=== PATIENT | female | born 1940 | race Caucasian/White ===

== ENCOUNTER 2016-11-04 16:36 | Emergency (ER) | payer MEDICARE ==
[2016-11-04 16:57] LABS: Hematocrit 29.8 % (37.0-47.0); Hemoglobin 9.8 gm/dL (12.5-16.0); Mean Cell Volume 95.8 fl (78-100); Mean Corpuscular Hemoglobin 31.5 pg (27-31); Mean Corpuscular Hgb Conc 32.9 g/dl (32-36); Mean Platelet Volume 9.3 fl (6.0-9.5); Neutrophil # 8.3 K/mm3 (1.3-6.0); Neutrophil % 82.2 % (42-75.0); Platelet Count 251 K/mm3 (150-450); Red Blood Count 3.11 M/mm3 (4.2-5.4); White Blood Count 10.1 K/mm3 (4.0-10.5)
[2016-11-04 16:59] LABS: Urine Bilirubin Negative (NEGATIVE); Urine Blood 25 /ul (NEGATIVE); Urine Ketone Negative (NEGATIVE); Urine Protein Negative (NEGATIVE); Urine Specific Gravity 1.025 SP.GR. (1.005-1.010); Urine Urobilinogen Normal (NORMAL)
[2016-11-04 17:09] LABS: Albumin * 3.9 gm/dl (3.4-5.0); Anion Gap 13.9 mmol/L (6.8-13.8); BUN/Creatinine Ratio 21.1 (9.0-21.6); Bilirubin, Total 1.3 mg/dL (0.0-1.1); Ca. Corrected For Albumin 8.9 mg/dL (8.4-10.2); Calcium * 9.1 mg/dL (7.9-10.9); Carbon Dioxide 27.2 mmol/L (24-32.6); Potassium 4.1 mmol/L (3.4-4.6); Total Protein 7.8 gm/dL (6.2-8.2)
[2016-11-04 17:10] LABS: Urine Appearance Slightly Cloudy; Urine Bacteria 3+; Urine Color Yellow; Urine Nitrite Positive (NEGATIVE); Urine RBC 0-5 /hpf (0-5)
--- OUTSIDE RECORDS SUMMARY | 2016-11-04 18:58 | XMS REPORT | Continuity of Care Document ---
:1940 Author Organization [facility] ([facility]) Address [address] [place] [address] Phone [phone] Care Team Providers Name Role Phone Ralph Rivas Primary Care Provider [phone] Source Comments This disclosure is being made pursuant to the Care Everywhere program, applicable federal and state laws, and may not contain all informaitonavailable regarding this patient.[facility] ([facility]) Active Allergies and Adverse Reactions Allergen Noted Date Severity Reactions Comments Ciprofloxacin 04/07/2012 Dizziness Codeine 04/07/2012 Mental status changes Metformin 04/07/2012 OTHER Sulfa (Sulfonamide Antibiotics) 04/07/2012 Unknown Current Medications Prescription Sig. Disp. Refills Start Date End Date Status pioglitazone (ACTOS) 45 Take 45 mg by mouth Active mg tablet daily. Aspirin 81 mg CpDR Take by mouth Active daily. simvastatin 80 mg tablet Take 40 mg by mouth Active every evening. LOSARTAN 100 mg tablet Take 100 mg by mouth 12/24/2014 Active daily OMEPRAZOLE 40 mg enteric Take 40 mg by mouth 12/09/2014 Active coated capsule daily RANITIDINE 300 mg tablet Take 300 mg by mouth 12/06/2014 Active daily levothyroxine 75 mcg Take 75 mcg by mouth Active tablet every morning before breakfast Active Problems Problem Noted Date Abnormal nuclear stress test 01/07/2015 Diabetes mellitus 04/10/2012 HTN (hypertension) 04/10/2012 Varicose veins 04/10/2012 UTI (urinary tract infection) 04/10/2012 Social History Tobacco Use Types Packs/Day Years Used Date Never Smoker Smokeless Tobacco: Never Used Alcohol Use Drinks/Week oz/Week Comments No Last Filed Vital Signs Vital Sign Reading Time Taken Blood Pressure 152/74 01/21/2015 12:55 PM CDT Pulse 70 01/21/2015 12:55 PM CDT Temperature 36.5 C (97.7 F) 11/26/2013 1:47 PM CDT Respiratory Rate 18 11/26/2013 1:47 PM CDT Height 1.524 m (5') 01/21/2015 12:55 PM CDT Weight 75.751 kg (167 lb) 01/21/2015 12:55 PM CDT Body Mass Index 32.62 01/21/2015 12:55 PM CDT Oxygen Saturation 98% 11/26/2013 1:47 PM CDT Plan of Care Health Maintenance Due Date Last Done Comments Hepatitis B Vaccine (1 of 3 - Primary Series) 1940 Tdap Vaccine 1951 DIABETIC: Cholesterol 1958 Diabetic: Hdl 1958 DIABETIC: Hemoglobin A1C 1958 Diabetic: Ldl 1958 DIABETIC: Microalbumin 1958 DIABETIC: Triglycerides 1958 Td Vaccine 1958 Mammogram 1980 Colonoscopy 1990 Zoster Vaccine 2000 Osteoporosis Screening (DXA Bone Density) 2005 Pneumococcal Vaccine (1 of 2 - PCV13) 2005 DIABETIC: Foot Exam 05/31/2012 DIABETIC: Retinal Eye Exam 05/31/2012 Influenza Vaccine: Seasonal (#1) 03/22/2016 Results from Last 3 Months Not on file
[2016-11-04] MEDS ORDERED: traMADol HCL 50 MG TABLET PO ONE (18:59)
[2016-11-04] MEDS ORDERED: ONDANSETRON 4 MG TAB.RAPDIS PO ONE (18:59)
--- NOTE | 2016-11-04 18:59 | ERNOTE ---
Abdominal HPI - Narrative Date of Service: 11/04/16 - General Chief Complaint: Abdominal Pain Time Seen by Provider: 11/04/16 18:52 Source: patient, family Exam Limitations: no limitations, clinical condition - Immun/Allergies/Home Medications Immunizatons: IMMUNIZATION HX Immunizations Up to Date Yes History of Influenza Vaccine Yes Hx Pneumococcal Vaccination No Allergies/Adverse Reactions: Allergies topiramate [From Topamax] Allergy (Unknown, Verified 11/04/16 16:43) codeine Adverse Reaction (Intermediate, Verified 11/04/16 16:43) CONFUSION atorvastatin calcium [From Lipitor] Adverse Reaction (Mild, Verified 11/04/16 16 :43) LEG CRAMPS metformin Adverse Reaction (Mild, Verified 11/04/16 16:43) Diarrhea moxifloxacin HCl [From Avelox] Adverse Reaction (Mild, Verified 11/04/16 16:43) GI UPSET sulfamethoxazole [From Bactrim] Adverse Reaction (Mild, Verified 11/04/16 16:43) Nausea Home Medications: HOME MEDICATIONS Aspirin [Aspirin Enteric Coated] 81 mg PO DAILY 06/21/13 [Last Taken 08/06/15 21 :00] Levothyroxine Sodium [Synthroid] 25 mcg PO DAILY 06/21/13 [Last Taken 08/06/15 21:00] Losartan Potassium [Cozaar] 100 mg PO DAILY 06/21/13 [Last Taken 08/06/15 21:00] Pioglitazone HCl [Actos] 45 mg PO DAILY 06/21/13 [Last Taken 08/06/15 21:00] Simvastatin 40 mg PO HS 06/21/13 [Last Taken 08/06/15 21:00] Acetaminophen [Tylenol] 650 mg PO QID PRN #0 tablet 08/11/15 [Last Taken Unknown ] Ranitidine HCl 150 mg PO DAILY 11/03/15 [Last Taken Unknown] Nitrofurantoin/Nitrofuran Mac [Macrobid] 1 cap PO Q12H #14 cap 11/04/16 [Last Taken Unknown] Phenazopyridine HCl [Pyridium] 1 tab PO Q8H PRN #12 tablet 11/04/16 [Last Taken Unknown] traMADol HCL [Ultram] 1 tab PO Q6H PRN #28 tab 11/04/16 [Last Taken Unknown] - History of Present Illness Narrative: Presents with c/o suprapubic pain, onset today. Pain described as sharp and crampy. Associated with nausea and a singe episode of vomiting today. Denies any dysuria or urinary frequency at this time. Denies any low back pain or constipation. Timing: constant Quality: moderate, aching, cramping, sharpness Associated Symptoms: Present: nausea, vomiting. Absent: back pain, chest pain, diaphoresis, diarrhea-gross blood, diarrhea-mucous, fatigue, fever/chills, heartburn, loss of appetite, shortness of breath, swelling/mass in abdomen, syncope, weakness Review of Systems - Review of Systems Constitutional: Present: no symptoms reported EYE: Present: no symptoms reported ENT: Present: no symptoms reported Respiratory: Present: no symptoms reported Cardiology: Present: no symptoms reported Gastrointestinal/Abdominal: Present: See HPI Genitourinary: Present: no symptoms reported Musculoskeletal: Present: no symptoms reported Skin: Present: no symptoms reported Neurological: Present: no symptoms reported Endocrine: Present: no symptoms reported Hematologic/Lymphatic: Present: no symptoms reported Psych: Present: no symptoms reported All Other Systems: All systems neg except as marked - Patient's Past Medical History Patient History - Medical: Anemia, Diabetes Type 2, GERD, Hypothyroidism, Kidney stone, Obesity, Osteoporosis, Other Patient History - Cardiac/Respiratory: Hypertension Patient History - Cancer: No Hx of Cancer Patient History - Surgical Procedures: Appendectomy, Colonoscopy, EGD, Hysterectomy, Other Patient History - Other: None - Family History Father Family History - Medical: Family History - Cardiac/Respiratory: No pertinent hx Mother Family History - Medical: Family History - Cardiac/Respiratory: CVA/Stroke, Hypertension - Social History Living Situations: home Abuse History: No History of abuse Psych History: No pertinent hx Alcohol Use: occasionally Drug Use: none - Immunizations Immunizations Up to Date: Yes Hx Pneumococcal Vaccination: No History of Influenza Vaccine: Yes Physical Exam - Physical Exam General Appearance: Present: wd/wn, alert, no apparent distress Respiratory: Present: no respiratory distress, normal breath sounds, no accessory muscle use, chest nontender, lungs clear Cardiovascular/Chest: Present: regular rate, rhythm, no murmur Gastrointestinal/Abdominal: Present: normal bowel sounds, nondistended, soft, no organomegaly, tenderness - Suprapubic TTP. Absent: guarding, rebound, McBurney sign, Obturator sign, Webster sign, mass, hernia, hepatomegaly Back Exam: Present: normal inspection, no CVA tenderness, no vertebral tenderness Extremity Exam: Present: normal inspection Neurological Exam: Present: alert, oriented, normal mood/affect Skin Exam: Present: normal color, warm/dry ED Progress - Results and Orders Patient's Lab Results:: I have reviewed the patient's lab results. - Vital Signs Patient's Vital Signs:: I have reviewed the patient's vital signs. Vital Signs: Vital Signs 11/04/16 16:39 Temperature 36.9 C Pulse Rate 81 Respiratory 12 Rate Blood Pressure 167/60 O2 Sat by Pulse 100 Oximetry - Progress/Reassessment Chief Complaint: Abdominal Pain Progress:: Improved Departure - Departure Clinical Impression: Urinary tract infection, acute, Failure of outpatient treatment Disposition: Home self-care Condition: Good Instructions: Urinary Tract Infection, Adult, [id number] Referrals: Ralph Whitaker MD [Primary Care Provider] - Prescriptions: Nitrofurantoin/Nitrofuran Mac [Macrobid] 1 cap PO Q12H #14 cap Phenazopyridine HCl [Pyridium] 1 tab PO Q8H PRN #12 tablet PRN Reason: Burning with urination traMADol HCL [Ultram] 1 tab PO Q6H PRN #28 tab PRN Reason: Pain
[2016-11-04] MEDS ORDERED: traMADol HCL 50 MG TABLET ONE (19:06)
[2016-11-04] MEDS ORDERED: ONDANSETRON HCL 8 MG TABLET ONE (19:06)
[2016-11-04 19:10] VITALS: BP 170/48
[2016-11-04] MEDS ORDERED: KETOROLAC TROMETHAMINE 30 MG/ML VIAL IM ONE (19:50)
[2016-11-04] MEDS ORDERED: NITROFURANTOIN/NITROFURAN MAC 100 MG CAPSULE ONE (19:50)
[2016-11-04] MEDS ORDERED: KETOROLAC TROMETHAMINE 30 MG/ML VIAL ONE (19:53)
[2016-11-04] MEDS ORDERED: NITROFURANTOIN/NITROFURAN MAC 100 MG CAPSULE PO ONE (19:54)
[2016-11-04] MEDS ORDERED: NITROFURANTOIN/NITROFURAN MAC 100 MG CAPSULE PO SCH (21:00)
== END 2016-11-04 20:53 | disposition home or self-care (01) ==
LOC: ER 16:36
DX: N39.0 Urinary tract infection, site not specified (principal); Z87.442 Personal history of urinary calculi; I10 Essential (primary) hypertension; E03.9 Hypothyroidism, unspecified; E11.9 Type 2 diabetes mellitus without complications